=== PATIENT | male | born 1960 | race Caucasian/White ===

== ENCOUNTER → 2018-09-29 | Outpatient (CLI) | payer OTHER | LOC: HYPER 09-23 15:07 | DX: S31.819A Unspecified open wound of right buttock, initial encounter (principal); L98.9 Disorder of the skin and subcutaneous tissue, unspecified; L08.9 Local infection of the skin and subcutaneous tissue, unspecified; G35 Multiple sclerosis; M81.0 Age-related osteoporosis without current pathological fracture; F32.9 Major depressive disorder, single episode, unspecified; F41.9 Anxiety disorder, unspecified; W34.09XA Accidental discharge from other specified firearms, initial encounter; Y93.89 Activity, other specified; Y92.89 Other specified places as the place of occurrence of the external cause; Y99.8 Other external cause status ==

== ENCOUNTER → 2018-10-21 | Outpatient (CLI) | payer OTHER | LOC: HYPER 07:11 | DX: S31.809D Unspecified open wound of unspecified buttock, subsequent encounter (principal); L08.9 Local infection of the skin and subcutaneous tissue, unspecified; L98.9 Disorder of the skin and subcutaneous tissue, unspecified; G35 Multiple sclerosis; M81.0 Age-related osteoporosis without current pathological fracture; M79.609 Pain in unspecified limb; F41.9 Anxiety disorder, unspecified; F32.9 Major depressive disorder, single episode, unspecified; W34.00XD Accidental discharge from unspecified firearms or gun, subsequent encounter ==